=== PATIENT | male | born 1985 ===

== ENCOUNTER → 2017-12-16 | Outpatient (REF) | payer BC ==
[~2017-12-16] VITALS: Ht 162.6 cm; Wt 71.7 kg
[~2017-12-16] MED LIST: DOCUSATE CAL240 MG PO; FLONASE AL50 MCG/ACT; OMEPRAZOLE20 M2 PO; VENTOLIN HFA IN
[2017-12-16 15:41] VITALS: BP 119/87
== END | disposition home or self-care (01) | DRG 951 ==
LOC: ORM 13:00 → PO 13:58
PROVIDERS: ATTEND Surgery
DX: Z01.818 Encounter for other preprocedural examination (principal); K21.9 Gastro-esophageal reflux disease without esophagitis; J30.2 Other seasonal allergic rhinitis; Z98.890 Other specified postprocedural states

== ENCOUNTER 2017-12-23 06:50 | Day surgery (SDC) | payer BC ==
[2017-12-23 08:36] VITALS: BP 109/62
== END 2017-12-23 09:00 | disposition home or self-care (01) | DRG 392 ==
LOC: ENDO 06:50 → ORM 08:00 → ENDO 09:00
PROVIDERS: ATTEND Surgery
PROC: 0DB48ZX Excision of Esophagogastric Junction, Via Natural or Artificial Opening Endoscopic, Diagnostic (ICD-10-PCS; principal; 2017-12-23)
PROC: 0DB78ZX Excision of Stomach, Pylorus, Via Natural or Artificial Opening Endoscopic, Diagnostic (ICD-10-PCS; 2017-12-23)
DX: K21.9 Gastro-esophageal reflux disease without esophagitis (principal); K29.60 Other gastritis without bleeding; Z79.899 Other long term (current) drug therapy

== ENCOUNTER 2019-02-03 02:58 | Emergency (ER) | payer BC ==
[~2019-02-03] VITALS: Ht 162.6 cm; Wt 63.6 kg
[2019-02-03 03:37] LABS: HEMOGLOBIN 13.4 g/dl (14.0-18.0); IMMATURE GRANULOCYTES 0.1 % (0.0-5.0); MEAN CELL VOLUME 81.8 fL CALC (80.0-100.0); MEAN CORPUSCULAR HGB 28.1 pG CALC (26.0-32.0); MEAN CORPUSCULAR HGB CONC 34.4 g/L CALC (32.0-36.0); NEUT# 3.44 thou/uL (1.82-7.42); RED BLOOD COUNT 4.77 mill/uL (4.70-6.10); RED CELL DISTRI WIDTH 12.1 % (11.5-15.5)
[2019-02-03 03:47] LABS: ALBUMIN 4.2 g/dL (3.2-5.0); ALKALINE PHOSPHATASE 60 u/l (38-126); ANION GAP 12 (6-22 (CALC)); BILIRUBIN, TOTAL 1.5 mg/dL (0.0-1.4); BUN 19 mg/dL (9-20); BUN/CREATININE RATIO 20 (12-20 (CALC)); CARBON DIOXIDE 25 mmol/l (22-30); CHLORIDE 101 mmol/l (95-108); ETHYL ALCOHOL 0 mg/dl (0-30); GFR > 60 ML/MIN (>=60 (CALC)); GFR FOR AFR.AMER. > 60 ML/MIN (>=60 (CALC)); LIPASE 101 u/l (23-300); POTASSIUM 4.1 mmol/l (3.5-5.1); SGOT/AST 32 u/l (17-59); SODIUM 134 mmol/l (137-146); TOTAL PROTEIN 7.1 g/dL (6.3-8.2)
[2019-02-03] MEDS ORDERED: AMOXICILLIN500 MG PO (04:25)
[2019-02-03 05:24] VITALS: BP 116/72
== END 2019-02-03 05:24 | disposition home or self-care (01) | DRG 153 ==
LOC: ED 02:58
DX: J02.0 Streptococcal pharyngitis (principal)